=== PATIENT | female | born 1990 | race Caucasian/White ===

== ENCOUNTER 2020-09-21 07:46 | Emergency (ER) | payer OTHER, SELFPAY ==
[2020-09-21] VITALS (36 sets, daily range): BP systolic 105–132; BP diastolic 72–98; PULSE 67–97; RESP 10–21; TEMP 36.7; O2SAT 96–100
--- NOTE | ~2020-09-21 | CT_ITS ---
EXAMINATION: CTA BRAIN/CAROTID DATE: 09/21/2020 09:52 INDICATION: Syncope. Dizziness. TECHNIQUE: Computed tomographic angiography (CTA) of the head and neck was performed with 100 mL Omni paque-350 intravenous contrast. Multiplanar reconstructions and maximum intensity projection 3D-recon structions of the carotid arteries and of the intracranial arteries were created by the technologist on a separate workstation. Precontrast CT of the head was also obtained. Automated exposure control and iterative reconstruction technique were employed.The dose-length product was 1765.39 mGy-cm. COMPARISON: None. FINDINGS: Carotid arteries: No atherosclerotic plaque was 0% stenosis of the left and right carotid bulbs relative to normal dist al artery lumen diameter (NASCET criteria). The visualized upper lungs are clear with no airspace opa cities, pulmonary edema, pleural effusion or pneumothorax. Thoracic aorta is normal in caliber with n o dissection. No pathologically enlarged upper thoracic or cervical lymphadenopathy. Cervical spine a nd cervical soft tissues are unremarkable. Head: No acute intracranial hemorrhage, acute infarction or abnormal extra axial fluid collection. Ventricl es are normal and symmetric. No mass/mass effect. No abnormally enhancing brain lesions. The orbits, paranasal sinuses and mastoid air cells are normal. Intracranial arteries There is no hemodynamically significant stenosis in the vertebral, basilar and internal carotid arter ies. Vertebral arteries are codominant. There are no aneurysms identified. Both A1 and P1 segments a re patent. There are also patent bilateral posterior to indicating arteries. Cerebral arterial arbori zation appears symmetric. IMPRESSION: 1. Normal head CT and normal cerebral and carotid CT angiogram. Reviewed, dictated and finalized at location A.
--- NOTE | 2020-09-21 07:48 | ECG_ITS ---
Measurements Intervals [place] Rate: 69 P: 79 CA: 161 QRS: 71 QRSD: 81 T: 66 QT: 392 QTc: 422 Interpretive Statements SINUS RHYTHM NORMAL ECG Electronically Signed On 09-21-2020 10:05:00 CDT by Abiel Hale D.O.
--- NOTE | 2020-09-21 08:18 | ED.GENADULT ---
HPI - General Adult General Chief complaint: Syncope Stated complaint: syncopal Time Seen by Provider: 09/21/20 07:49 Source: patient History of Present Illness HPI narrative: Patient is a 30 y/o female complaining of feeling dizziness and passed out. She states that she was at work and suddenly felt light-headed and room spinning. She passed out briefly. She currently complains of headache. She has no focal weakness or numbness. She states that she was diagnosed with vertigo 2 weeks ago at an urgent care facility. She was given medication for dizziness and nausea. Related Data Home Medications Medication Instructions Recorded Confirmed No Home Medications 09/21/20 09/21/20 Allergies Allergy/AdvReac Type Severity Reaction Status Date / Time No Known Allergies Allergy Verified 09/21/20 09:21 Review of Systems Constitutional: Constitutional: Denies chills, Denies fever(s), Reports headache(s) and Denies weakness Eyes: Eyes: Denies blurry vision ENT: Reports headache(s) and Denies neck pain Cardiovascular: Cardiovascular: Denies chest pain and Denies dyspnea Respiratory: Respiratory: Denies cough and Denies dyspnea Gastrointestinal: Gastrointestinal: Denies abdominal pain, Denies diarrhea, Denies nausea and Denies vomiting Genitourinary: Genitourinary: Denies hematuria and Denies dysuria Musculoskeletal: Musculoskeletal: Denies back pain and Denies neck pain Neurologic: Reports dizziness, Reports syncope, Reports headache(s) and Denies weakness [facility] Social History Social History Gender identity (if verbalized by the patient): Female Exam Const: General: no acute distress and well developed Orientation/consciousness: oriented to person, oriented to place, oriented to time and patient oriented x3 HENMT: Head: normocephalic Ears: external ears normal General nose exam: Normal external nose present Eyes: General: appearance normal, both eyes and all related structures Conjunctivae: conjunctivae normal Neck: Neck: normal visual inspection and full ROM Chest: Chest palpation & inspection: normal inspection of the chest and no tenderness Resp: Effort & Inspection: normal respiratory effort Auscultation: clear to auscultation bilaterally Cardio: Rate: regular rate Rhythm: regular rhythm GI: GI Palp: No abdominal tenderness and Yes Soft to palpation Skin: General skin exam: normal color and turgor normal Neuro: General: oriented to person, oriented to place, oriented to time and patient oriented x3 Cranial nerves: Yes CN's II-XII intact bilaterally Cognition (Neuro): normal cognition Speech: normal speech Motor exam (neuro): 5/5 motor strength present throughout Sensory Exam: normal sensation Coordination: [id number] test normal and [id number] test normal Extrem: General: normal to inspection, full ROM and no pedal edema Psych: Appearance: grossly normal Mental Status: mental status grossly normal Affect: normal affect Course Reevaluation(s) Reevaluation #1: Rechecked patient. She states that she feels better. Her headache has improved. She does not feel dizzy at this time. Date: 09/21/20 Time: 11:34 Vital Signs Vital signs: Vital Signs Temperature 36.7 C 09/21/20 07:48 Pulse Rate 77 09/21/20 07:48 Respiratory Rate 12 09/21/20 07:48 Blood Pressure 124/91 H 09/21/20 07:48 Pulse Oximetry 98 09/21/20 07:48 Temperature 36.7 C 09/21/20 07:48 Pulse Rate 86 09/21/20 11:30 Respiratory Rate 12 09/21/20 11:30 Blood Pressure 132/78 09/21/20 11:30 Pulse Oximetry 97 09/21/20 11:30 Medical Decision Making Vital Signs Vital Signs: Vital Signs Temperature 36.7 C 09/21/20 07:48 Pulse Rate 77 09/21/20 07:48 Respiratory Rate 12 09/21/20 07:48 Blood Pressure 124/91 H 09/21/20 07:48 Pulse Oximetry 98 09/21/20 07:48 Temperature 36.7 C 09/21/20 07:48 Pulse Rate 86 09/21/20 11
[2020-09-21 08:19] LABS: Basophils Percent Auto 0.5 % (0.2-1.2); Eosinophils Percent Auto 0.5 % (0-4.4); Hematocrit 43.2 % (37.0-47.0); Hemoglobin 14.1 g/dL (12.0-15.0); Immature Granulocyte Absolute 0.01 K/mm3 (0.00-0.031); Immature Granulocyte Percent A 0.1 % (0-0.5); Lymphocytes Absolute Auto 1.58 K/mm3 (0.9-3.2); Lymphocytes Percent Auto 19.5 % (18.3-44.2); Mean Corpuscular HGB Conc 32.6 g/dl (32-36); Mean Corpuscular Volume 91.9 fl (80-100); Mean Platelet Volume 9.1 fl (7.4-10.4); Monocytes Absolute Auto 0.5 K/mm3 (0.1-0.6); Monocytes Percent Auto 6.7 % (2.6-8.5); Neutrophils Absolute Auto 5.9 K/mm3 (1.3-6.7); Neutrophils Percent Auto 72.7 % (45.5-73.1); Platelet Count Result 276 k/mm3 (150-375); Red Cell Distribution Width 12.5 % (11.5-14.5); White Blood Count 8.1 K/mm3 (4.5-10.0)
[2020-09-21 08:32] LABS: Anion Gap 5 mmol/L (8-16); Blood Urea Nitrogen 9 mg/dL (7-17); Calcium 9.2 mg/dL (8.4-10.2); Carbon Dioxide 29 mmol/L (22-30); Chloride 104 mmol/L (98-107); Estimated CRCL calculation 78 ml/min; Estimated Glomerular Filt Rate > 60; Glucose 89 mg/dL (65-105); Potassium 3.6 mmol/L (3.4-5.0); Sodium 138 mmol/L (137-145)
[2020-09-21 08:33] LABS: Add Urine Microscopic? YES; Appearance Urine Cloudy (Clear); Bacteria Urine 3+ /hpf; Bilirubin Urine Negative (Negative); Blood Urine 1+ (Negative); Color Urine Yellow (Yellow); Glucose Urine UA Negative (Negative); Ketones Urine Trace mg/dL (Negative); Leukocyte Esterase Ur Trace LEU/UL (Negative); Mucus Urine Rare /lpf; Nitrate Urine Positive (Negative); Protein Urine Negative (Negative); Specific Grav Ur 1.008 (1.001-1.035); Squamous Epithelial Cell Urine Many /hpf (Few); Urobilinogen Urine Negative mg/dL (<2.0)
--- NOTE | 2020-09-21 09:30 | PC.NURSE ---
Pt to CT.
[2020-09-21] MEDS: KETOROLAC 30 MG/ML VIAL (*BKC) IV PUSH (11:27)
== END 2020-09-21 11:48 | disposition home or self-care (01) ==
PROVIDERS: Emergency Provider Emergency Medicine
DX: R55 Syncope and collapse (principal); R42 Dizziness and giddiness; R51.9 Headache, unspecified
CPT/HCPCS: 36415; 70496; 70498; 80048; 81001; 81025; 85025; 87077; 87086; 87088; 87186; 93005; 96374; 99284; J1885; Q9967